=== PATIENT | male | born 1980 | race Caucasian/White ===

== ENCOUNTER 2024-01-23 14:58 | Outpatient (RCR) | payer OTHER, SELFPAY ==
[2024-01-23 15:07] LABS: % Basophils 0.6 % (0-2); % Eosinophils 2.3 % (0-6); % Immature Granulocytes 0.1 % (0-0.5); % Lymphocytes 30.8 % (20.5-51.1); % Monocytes 9.6 % (1.7-9.3); % Neutrophils 56.6 % (42.2-75.2); Absolute Basophils 0.1 10^3/uL (0-0.2); Absolute Eosinophils 0.2 10^3/uL (0-0.7); Absolute Lymphocytes 2.6 10^3/uL (1.2-3.4); Absolute Monocytes 0.8 10^3/uL (0.1-0.6); Absolute Neutrophils 4.7 10^3/uL (1.4-6.5); Hematocrit 48.9 % (39.0-52.0); Hemoglobin 15.9 g/dL (13.0-18.0); Mean Corp Hgb Conc. 32.5 g/dL (33.0-37.0); Mean Corpuscular Hgb 26.5 pg (27.0-31.0); Mean Corpuscular Volume 81.4 fL (80.0-94.0); Mean Platelet Volume 10.7 fL (7.4-10.4); Platelet Count 201 10^3/uL (130-400); Red Blood Cell Count 6.01 10^6/uL (4.70-6.10); White Blood Cell Count 8.4 10^3/uL (4.8-10.8)
[2024-01-23 15:20] VITALS: BP 149/97
[2024-01-23 15:40] VITALS: BP 137/62
[2024-01-23 15:45] VITALS: BP 142/78
[2024-01-23 16:19] LABS: Iron 50 ug/dl (49-181)
[2024-01-23 16:28] LABS: Percent Saturation 10 % (20-50); Total Iron Binding Capacity 467 ug/dl (261-462)
[2024-01-23 16:55] LABS: Ferritin 13.3 ng/ml (17.9-464.0)
== END 2024-01-24 09:10 | disposition home or self-care (01) ==
LOC: OID 14:58
PROVIDERS: ATTENDING PHYSICIAN Family Medicine
DX: E83.110 Hereditary hemochromatosis (principal)
CPT/HCPCS: 36415; 82728; 83540; 83550; 85025; 99195

== ENCOUNTER 2024-04-23 14:45 | Outpatient (RCR) | payer OTHER, SELFPAY ==
[2024-04-23 14:55] LABS: % Basophils 0.6 % (0-2); % Eosinophils 1.9 % (0-6); % Immature Granulocytes 0.1 % (0-0.5); % Lymphocytes 33.2 % (20.5-51.1); % Monocytes 9.2 % (1.7-9.3); Absolute Basophils 0.1 10^3/uL (0-0.2); Absolute Eosinophils 0.2 10^3/uL (0-0.7); Absolute Lymphocytes 2.6 10^3/uL (1.2-3.4); Absolute Monocytes 0.7 10^3/uL (0.1-0.6); Absolute Neutrophils 4.3 10^3/uL (1.4-6.5); Mean Corp Hgb Conc. 33.3 g/dL (33.0-37.0); Mean Corpuscular Volume 81.1 fL (80.0-94.0); Mean Platelet Volume 10.9 fL (7.4-10.4); Platelet Count 213 10^3/uL (130-400); Red Blood Cell Count 5.92 10^6/uL (4.70-6.10); Red Cell Dist. Width 15.1 % (11.5-14.5); White Blood Cell Count 7.9 10^3/uL (4.8-10.8)
[2024-04-23 15:02] VITALS: BP 149/88
[2024-04-23 15:34] VITALS: BP 154/80
[2024-04-23 15:40] LABS: Iron 89 ug/dl (49-181)
[2024-04-23 15:45] VITALS: BP 123/79
[2024-04-23 15:49] LABS: Percent Saturation 20 % (20-50); Total Iron Binding Capacity 439 ug/dl (261-462)
[2024-04-23 16:16] LABS: Ferritin 19.3 ng/ml (17.9-464.0)
== END 2024-05-19 23:59 | disposition home or self-care (01) ==
LOC: OID 14:45
PROVIDERS: ATTENDING PHYSICIAN Family Medicine
DX: E83.110 Hereditary hemochromatosis (principal)
CPT/HCPCS: 36415; 82728; 83540; 83550; 85025; 99195

== ENCOUNTER 2024-06-25 14:47 | Outpatient (RCR) | payer OTHER, SELFPAY ==
[2024-06-25 15:16] LABS: % Basophils 0.5 % (0-2); % Immature Granulocytes 0.2 % (0-0.5); % Lymphocytes 28.2 % (20.5-51.1); % Monocytes 10.1 % (1.7-9.3); Absolute Eosinophils 0.2 10^3/uL (0-0.7); Absolute Lymphocytes 2.4 10^3/uL (1.2-3.4); Absolute Monocytes 0.9 10^3/uL (0.1-0.6); Hematocrit 50.1 % (39.0-52.0); Hemoglobin 16.6 g/dL (13.0-18.0); Mean Corp Hgb Conc. 33.1 g/dL (33.0-37.0); Mean Corpuscular Volume 81.5 fL (80.0-94.0); Mean Platelet Volume 10.7 fL (7.4-10.4); Platelet Count 187 10^3/uL (130-400); Red Blood Cell Count 6.15 10^6/uL (4.70-6.10); Red Cell Dist. Width 15.3 % (11.5-14.5); White Blood Cell Count 8.4 10^3/uL (4.8-10.8)
[2024-06-25 15:39] VITALS: BP 150/85
[2024-06-25 16:06] VITALS: BP 143/74
[2024-06-25 16:12] VITALS: BP 142/89
== END 2024-06-26 10:00 | disposition home or self-care (01) ==
LOC: OID 14:47
PROVIDERS: ATTENDING PHYSICIAN Family Medicine
DX: E83.110 Hereditary hemochromatosis (principal)
CPT/HCPCS: 36415; 85025; 99195

== ENCOUNTER 2024-08-01 14:57 | Outpatient (RCR) | payer OTHER, SELFPAY ==
[2024-08-01 15:08] LABS: % Basophils 0.7 % (0-2); % Immature Granulocytes 0.1 % (0-0.5); % Lymphocytes 32.1 % (20.5-51.1); % Monocytes 8.9 % (1.7-9.3); % Neutrophils 56.2 % (42.2-75.2); Absolute Basophils 0.1 10^3/uL (0-0.2); Absolute Eosinophils 0.2 10^3/uL (0-0.7); Absolute Lymphocytes 2.7 10^3/uL (1.2-3.4); Absolute Monocytes 0.7 10^3/uL (0.1-0.6); Absolute Neutrophils 4.7 10^3/uL (1.4-6.5); Hematocrit 47.2 % (39.0-52.0); Hemoglobin 15.7 g/dL (13.0-18.0); Mean Corp Hgb Conc. 33.3 g/dL (33.0-37.0); Mean Corpuscular Hgb 27.5 pg (27.0-31.0); Mean Corpuscular Volume 82.8 fL (80.0-94.0); Mean Platelet Volume 11.1 fL (7.4-10.4); Platelet Count 207 10^3/uL (130-400); Red Cell Dist. Width 14.2 % (11.5-14.5); White Blood Cell Count 8.4 10^3/uL (4.8-10.8)
[2024-08-01 15:16] VITALS: BP 130/78
[2024-08-01 15:29] VITALS: BP 138/78
[2024-08-01 15:38] VITALS: BP 149/85
[2024-08-01 15:49] LABS: Iron 60 ug/dl (49-181)
[2024-08-01 15:58] LABS: Percent Saturation 14 % (20-50); Total Iron Binding Capacity 428 ug/dl (261-462)
[2024-08-01 16:26] LABS: Ferritin 14.5 ng/ml (17.9-464.0)
== END 2024-08-02 09:31 | disposition home or self-care (01) ==
LOC: OID 14:57
PROVIDERS: ATTENDING PHYSICIAN Family Medicine
DX: E83.110 Hereditary hemochromatosis (principal)
CPT/HCPCS: 36415; 82728; 83540; 83550; 85025; 99195

== ENCOUNTER 2024-11-28 14:49 | Outpatient (RCR) | payer OTHER, SELFPAY ==
[2024-11-28 14:59] LABS: % Basophils 0.5 % (0-2); % Eosinophils 1.9 % (0-6); % Immature Granulocytes 0.1 % (0-0.5); % Lymphocytes 26.6 % (20.5-51.1); % Monocytes 8.4 % (1.7-9.3); % Neutrophils 62.5 % (42.2-75.2); Absolute Basophils 0.1 10^3/uL (0-0.2); Absolute Eosinophils 0.2 10^3/uL (0-0.7); Absolute Lymphocytes 2.5 10^3/uL (1.2-3.4); Absolute Monocytes 0.8 10^3/uL (0.1-0.6); Absolute Neutrophils 5.8 10^3/uL (1.4-6.5); Hematocrit 50.4 % (39.0-52.0); Hemoglobin 16.6 g/dL (13.0-18.0); Mean Corp Hgb Conc. 32.9 g/dL (33.0-37.0); Mean Corpuscular Hgb 27.2 pg (27.0-31.0); Mean Corpuscular Volume 82.6 fL (80.0-94.0); Mean Platelet Volume 10.6 fL (7.4-10.4); Platelet Count 213 10^3/uL (130-400); Red Cell Dist. Width 14.5 % (11.5-14.5); White Blood Cell Count 9.4 10^3/uL (4.8-10.8)
[2024-11-28 15:21] VITALS: BP 177/83
[2024-11-28 15:55] VITALS: BP 150/77
[2024-11-28 16:00] VITALS: BP 131/71
[2024-11-28 16:29] LABS: Iron 49 ug/dl (49-181)
[2024-11-28 16:39] LABS: Percent Saturation 11 % (20-50); Total Iron Binding Capacity 436 ug/dl (261-462)
[2024-11-28 17:06] LABS: Ferritin 17.5 ng/ml (17.9-464.0)
== END 2024-12-20 23:59 | disposition home or self-care (01) ==
LOC: OID 14:49
PROVIDERS: ATTENDING PHYSICIAN Family Medicine
DX: E83.110 Hereditary hemochromatosis (principal)
CPT/HCPCS: 36415; 82728; 83540; 83550; 85025; 99195

== ENCOUNTER 2025-01-02 14:54 | Outpatient (RCR) | payer OTHER, SELFPAY ==
[2025-01-02 15:06] LABS: % Basophils 0.6 % (0-2); % Immature Granulocytes 0.1 % (0-0.5); % Lymphocytes 28.1 % (20.5-51.1); % Monocytes 7.8 % (1.7-9.3); % Neutrophils 61.4 % (42.2-75.2); Absolute Basophils 0.1 10^3/uL (0-0.2); Absolute Eosinophils 0.2 10^3/uL (0-0.7); Absolute Lymphocytes 2.6 10^3/uL (1.2-3.4); Absolute Monocytes 0.7 10^3/uL (0.1-0.6); Absolute Neutrophils 5.6 10^3/uL (1.4-6.5); Hematocrit 47.9 % (39.0-52.0); Hemoglobin 15.9 g/dL (13.0-18.0); Mean Corp Hgb Conc. 33.2 g/dL (33.0-37.0); Mean Corpuscular Hgb 27.8 pg (27.0-31.0); Mean Corpuscular Volume 83.7 fL (80.0-94.0); Mean Platelet Volume 10.3 fL (7.4-10.4); Platelet Count 213 10^3/uL (130-400); Red Blood Cell Count 5.72 10^6/uL (4.70-6.10); Red Cell Dist. Width 14.3 % (11.5-14.5); White Blood Cell Count 9.1 10^3/uL (4.8-10.8)
[2025-01-02 15:21] VITALS: BP 137/88
[2025-01-02 15:54] VITALS: BP 125/77
[2025-01-02 16:00] VITALS: BP 151/92
== END 2025-01-03 08:23 | disposition home or self-care (01) ==
LOC: OID 14:54
PROVIDERS: ATTENDING PHYSICIAN Family Medicine
DX: E83.110 Hereditary hemochromatosis (principal)
CPT/HCPCS: 36415; 85025; 99195

== ENCOUNTER 2025-02-13 15:02 | Outpatient (RCR) | payer OTHER, SELFPAY ==
[2025-02-13 15:22] LABS: % Basophils 0.6 % (0-2); % Eosinophils 2.3 % (0-6); % Immature Granulocytes 0.1 % (0-0.5); % Lymphocytes 27.4 % (20.5-51.1); % Monocytes 7.3 % (1.7-9.3); % Neutrophils 62.3 % (42.2-75.2); Absolute Basophils 0.1 10^3/uL (0-0.2); Absolute Eosinophils 0.2 10^3/uL (0-0.7); Absolute Lymphocytes 2.4 10^3/uL (1.2-3.4); Absolute Monocytes 0.6 10^3/uL (0.1-0.6); Absolute Neutrophils 5.4 10^3/uL (1.4-6.5); Hematocrit 48.3 % (39.0-52.0); Hemoglobin 15.8 g/dL (13.0-18.0); Mean Corp Hgb Conc. 32.7 g/dL (33.0-37.0); Mean Corpuscular Hgb 27.2 pg (27.0-31.0); Mean Corpuscular Volume 83.3 fL (80.0-94.0); Mean Platelet Volume 10.5 fL (7.4-10.4); Platelet Count 207 10^3/uL (130-400); Red Cell Dist. Width 13.7 % (11.5-14.5); White Blood Cell Count 8.6 10^3/uL (4.8-10.8)
[2025-02-13 15:28] VITALS: BP 147/77
[2025-02-13 15:55] VITALS: BP 155/70
[2025-02-13 16:00] VITALS: BP 159/70
== END 2025-02-14 09:02 | disposition home or self-care (01) ==
LOC: OID 15:02
PROVIDERS: ATTENDING PHYSICIAN Family Medicine
DX: E83.110 Hereditary hemochromatosis (principal)
CPT/HCPCS: 36415; 85025; 99195

== ENCOUNTER 2025-04-03 14:42 | Outpatient (RCR) | payer OTHER, SELFPAY ==
[2025-04-03 15:09] VITALS: BP 144/89
[2025-04-03 15:30] VITALS: BP 137/76
[2025-04-03 15:35] VITALS: BP 153/82
[2025-04-03 15:35] LABS: Iron 48 ug/dl (49-181)
[2025-04-03 15:45] LABS: Percent Saturation 10 % (20-50); Total Iron Binding Capacity 446 ug/dl (261-462)
[2025-04-03 16:12] LABS: Ferritin 13.8 ng/ml (17.9-464.0)
== END 2025-04-04 09:44 | disposition home or self-care (01) ==
LOC: OID 14:42
PROVIDERS: ATTENDING PHYSICIAN Family Medicine
DX: E83.110 Hereditary hemochromatosis (principal)
CPT/HCPCS: 36415; 82728; 83540; 83550; 99195

== ENCOUNTER 2025-05-15 14:49 | Outpatient (RCR) | payer OTHER, SELFPAY ==
[2025-05-15 15:07] LABS: % Basophils 0.6 % (0-2); % Eosinophils 1.8 % (0-6); % Immature Granulocytes 0.2 % (0-0.5); % Lymphocytes 29.2 % (20.5-51.1); % Monocytes 8.2 % (1.7-9.3); Absolute Basophils 0.1 10^3/uL (0-0.2); Absolute Eosinophils 0.2 10^3/uL (0-0.7); Absolute Lymphocytes 2.5 10^3/uL (1.2-3.4); Absolute Monocytes 0.7 10^3/uL (0.1-0.6); Absolute Neutrophils 5.2 10^3/uL (1.4-6.5); Hematocrit 46.1 % (39.0-52.0); Mean Corp Hgb Conc. 32.5 g/dL (33.0-37.0); Mean Corpuscular Hgb 26.4 pg (27.0-31.0); Mean Platelet Volume 11.3 fL (7.4-10.4); Platelet Count 235 10^3/uL (130-400); Red Blood Cell Count 5.69 10^6/uL (4.70-6.10); Red Cell Dist. Width 14.3 % (11.5-14.5); White Blood Cell Count 8.7 10^3/uL (4.8-10.8)
[2025-05-15 15:15] VITALS: BP 150/76
[2025-05-15 15:47] VITALS: BP 131/70
[2025-05-15 15:50] VITALS: BP 139/72
== END 2025-05-16 09:50 | disposition home or self-care (01) ==
LOC: OID 14:49
PROVIDERS: ATTENDING PHYSICIAN Family Medicine
DX: E83.110 Hereditary hemochromatosis (principal)
CPT/HCPCS: 36415; 85025; 99195

== ENCOUNTER 2025-06-24 14:55 | Outpatient (RCR) | payer OTHER, SELFPAY ==
[2025-06-24 15:07] LABS: Hematocrit 45.0 % (39.0-52.0); Hemoglobin 14.5 g/dL (13.0-18.0); Mean Corp Hgb Conc. 32.2 g/dL (33.0-37.0); Mean Corpuscular Volume 79.9 fL (80.0-94.0); Platelet Count 230 10^3/uL (130-400); Red Cell Dist. Width 14.3 % (11.5-14.5)
[2025-06-24 15:24] VITALS: BP 145/69
[2025-06-24 15:47] LABS: Iron 49 ug/dl (49-181)
[2025-06-24 15:49] VITALS: BP 141/78
[2025-06-24 15:57] LABS: Total Iron Binding Capacity 463 ug/dl (261-462)
[2025-06-24 16:00] VITALS: BP 141/76
[2025-06-24 16:23] LABS: Ferritin 11.1 ng/ml (17.9-464.0)
== END 2025-06-25 08:29 | disposition home or self-care (01) ==
LOC: OID 14:55
PROVIDERS: ATTENDING PHYSICIAN Family Medicine
DX: E83.110 Hereditary hemochromatosis (principal)
CPT/HCPCS: 36415; 82728; 83540; 83550; 85025; 99195

== ENCOUNTER 2025-10-02 14:50 | Outpatient (RCR) | payer OTHER, SELFPAY ==
[2025-10-02 15:06] LABS: Hematocrit 48.9 % (39.0-52.0); Hemoglobin 15.6 g/dL (13.0-18.0); Mean Corp Hgb Conc. 31.9 g/dL (33.0-37.0); Mean Corpuscular Volume 81.0 fL (80.0-94.0); Platelet Count 214 10^3/uL (130-400); Red Cell Dist. Width 15.7 % (11.5-14.5)
[2025-10-02 15:13] VITALS: BP 146/81
[2025-10-02 15:51] VITALS: BP 152/61
[2025-10-02 15:59] VITALS: BP 127/70
[2025-10-02 16:14] LABS: Iron 49 ug/dl (49-181)
[2025-10-02 16:23] LABS: Total Iron Binding Capacity 428 ug/dl (261-462)
[2025-10-02 16:43] LABS: Ferritin 13.0 ng/ml (17.9-464.0)
== END 2025-10-19 23:59 | disposition home or self-care (01) ==
LOC: OID 14:50
PROVIDERS: ATTENDING PHYSICIAN Family Medicine
DX: E83.110 Hereditary hemochromatosis (principal)
CPT/HCPCS: 36415; 82728; 83540; 83550; 85025; 99195